=== PATIENT | female | born 1960 | race African-American/Black ===

== ENCOUNTER 2017-08-07 05:56 | Observation (INO) | payer BC ==
[~2017-08-07] VITALS: Ht 157.5 cm; Wt 105.0 kg
[2017-08-07] VITALS (9 sets, daily range): BP systolic 108–141; BP diastolic 58–92; PULSE 60–72; RESP 17–18; TEMP 97.8–98.4; O2SAT 96–98
[2017-08-07] MEDS ORDERED: NITROGLYCERIN 0.4 MG SL 25 TABS/BTL SL ONE (06:15)
[2017-08-07] MEDS ORDERED: ASPIRIN 81 MG CHEW TAB PO ONE (06:15)
[2017-08-07] MEDS ORDERED: SODIUM CHLORIDE 0.9% FLUSH 10 ML FLUSH IVF PRN (06:15)
--- NOTE | 2017-08-07 06:16 | PD ---
HPI Chief Complaint: Chest Pain Time Seen by Provider: 06:04 Travel History International Travel<30 days: No Contact w/Intl Traveler<30days: No Traveled to known affect area: No History of Present Illness HPI The patient is a 57 year old female who presents to the [facility] emergency department with a history of flulike symptoms that began on Saturday. She had a cough, body aches, and a subjective fever. This morning she awoke with chest pain, that radiated between her shoulders. She had associated shortness of breath. The pain is a pressure sensation. It comes comes and goes. Laying still improves the pain. She denies ever having chest pain like this previously. The patient does have a history of hypertension, hyperlipidemia, and peripheral lower extremity edema. She denies any prior history of NH, DVT, PE or congestive heart failure. The patient reports that she is on hydrochlorothiazide for her blood pressure. She reports that her swelling in her legs became worse over the last 24 hours due to dietary indiscretions. She reports that she had salt yesterday which usually worsens the edema. Otherwise on review of systems, the patient denies having any sore throat, rhinorrhea or nasal congestion, nausea, vomiting, or diarrhea. The patient denies having any abdominal pain, urinary symptoms, or neurologic symptoms. PFSH Past Medical History Narrative Medical The patient's past medical history is significant for degenerative disc disease , hypertension, hyperlipidemia, right shoulder arthritis, leg edema. High Cholesterol: Yes Hypertension: Yes Medical other: Yes (RLS) Influenza Vaccination: No Past Surgical History Narrative Surgical The patient's past surgical history is significant for abdominal hernia repair Other Surgery: Yes (hernia surgery with mesh 11/2016) Social History Alcohol Use: No Tobacco Use: No Substance Use: No Allergies-Medications (Allergen,Severity, Reaction): Coded Allergies: ibuprofen (Verified Allergy, Unknown, BLEEDING, 08/07/17) Reported Meds & Prescriptions Reported Meds & Active Scripts Active Reported Tizanidine (Tizanidine HCl) 4 Mg Tab 4 Mg PO Q6HR D3 Maximum Strength (Cholecalciferol) 5,000 Unit Cap 1,000 Units PO DAILY Tylenol (Acetaminophen) 325 Mg Tab 500 Mg PO Q4H PRN Hydrochlorothiazide 12.5 Mg Cap 12.5 Mg PO DAILY Meloxicam 15 Mg Tab 15 Mg PO DAILY Potassium Chloride ER (Potassium Chloride) 20 Meq Tab 20 Meq PO BID B12 (Cyanocobalamin) 1,000 Mcg Tab 500 Gabapentin 100 Mg Cap 100 Mg PO TID Review of Systems Except as stated in HPI: all other systems reviewed are Neg General / Constitutional: Positive: Fever Eyes: No: Visual changes HENT: No: Headaches, Sore Throat, Rhinitis, Rhinorrhea, Congestion Cardiovascular: Positive: Chest Pain or Discomfort, Dyspnea on exertion Respiratory: Positive: Cough (white mucus), Shortness of Breath Gastrointestinal: No: Nausea, Vomiting, Diarrhea, Abdominal Pain Genitourinary: No: Dysuria Musculoskeletal: Positive: Myalgias, No: Pain Skin: No Rash Neurologic: No: Weakness, Focal Abnormalities, Change in Mentation, Slurred Speech, Sensory Disturbance Psychiatric: No: Depression Endocrine: No: Polydipsia Hematologic/Lymphatic: No: Easy Bruising Physical Exam Narrative General: The patient is a well-developed well-nourished female in no acute distress. Head and Neck exam: Head is normocephalic atraumatic. Eyes: EOMI, pupils are equal round and reactive to light. Nose: Midline septum with pink mucous membranes Mouth: Dentition unremarkable. Moist mucus membranes. Posterior oropharynx is not erythematous. No tonsillar hypertrophy. Uvula midline. Airway patent. Neck: No palpable lymphadenopathy. No nuchal rigidity. No thyromegaly. Cardiovascular: Regular rate and rhythm without murmurs, gallops, or rubs. Lungs: Decreased breath sounds in bilateral lung bases, no wheezes, rhonchi, or crackles are audible. Abdomen: Soft, without tenderness to palpation in all 4 quadrants of the abdomen. No guarding, rebound, or rigidity. Normal bowel sounds are audible. No tenderness on palpation of McBurney's point. Extremities: No clubbing or cyanosis. The patient has 1+ pitting edema bilateral lower extremities. 2+ pulses in all 4 extremities. No calf tenderness on palpation. Back: No spinous process tenderness to palpation. No costovertebral angle tenderness to palpation. On examination of the upper back between her shoulder blades the patient has muscle tenderness on palpation. No spinous process step-off or crepitus. No erythema or ecchymosis. Neurologic Exam: Grossly nonfocal. Skin Exam: No rash noted. Intact skin that is warm and dry. Data Data Last Documented VS Vital Signs Date Time Temp Pulse Resp B/P (MAP) Pulse Ox O2 Delivery O2 Flow Rate FiO2 08/07/17 07:05 97.8 62 17 108/58 (75) 96 Room Air Orders Orders Electrocardiogram (08/07/17 06:14) B-Type Natriuretic Peptide (08/07/17 06:14) Ckmb (Isoenzyme) Profile (08/07/17 06:14) Complete Blood Count With Diff (08/07/17 06:14) Comprehensive Metabolic Panel (08/07/17 06:14) D-Dimer (08/07/17 06:14) Magnesium (Mg) (08/07/17 06:14) Prothrombin Time / Inr (Pt) (08/07/17 06:14) Act Partial Throm Time (Ptt) (08/07/17 06:14) Troponin I (08/07/17 06:14) Lipase (08/07/17 06:14) Chest, Single Ap (08/07/17 06:14) Ecg Monitoring (08/07/17 06:14) Bilateral Bp Monitoring (08/07/17 06:14) Iv Access Insert/Monitor (08/07/17 06:14) Oximetry (08/07/17 06:14) Oxygen Administration (08/07/17 06:14) Aspirin Chew (Aspirin Chew) (08/07/17 06:15) Sodium Chloride 0.9% Flush (Ns Flush) (08/07/17 06:15) Nitroglycerin Sl (Nitrostat Sl) (08/07/17 06:15) Influenzae A/B Antigen (08/07/17 06:56) Ct Pulmonary Angiogram (08/07/17 07:09) Labs Laboratory Tests Test 08/07/17 06:10 White Blood Count 4.2 TH/MM3 Red Blood Count 4.07 MIL/MM3 Hemoglobin 11.0 GM/DL Hematocrit 32.9 % Mean Corpuscular Volume 80.9 FL Mean Corpuscular Hemoglobin 27.0 PG Mean Corpuscular Hemoglobin Concent 33.4 % Red Cell Distribution Width 14.4 % Platelet Count 345 TH/MM3 Mean Platelet Volume 7.3 FL Neutrophils (%) (Auto) 33.5 % Lymphocytes (%) (Auto) 44.5 % Monocytes (%) (Auto) 13.1 % Eosinophils (%) (Auto) 7.8 % Basophils (%) (Auto) 1.1 % Neutrophils # (Auto) 1.4 TH/MM3 Lymphocytes # (Auto) 1.9 TH/MM3 Monocytes # (Auto) 0.6 TH/MM3 Eosinophils # (Auto) 0.3 TH/MM3 Basophils # (Auto) 0.0 TH/MM3 CBC Comment DIFF FINAL Differential Comment Prothrombin Time 10.9 SEC Prothromb Time International Ratio 1.1 RATIO Activated Partial Thromboplast Time 28.8 SEC D-Dimer Quantitative (PE/DVT) 0.57 MG/L FEU Blood Urea Nitrogen 20 MG/DL Creatinine 0.90 MG/DL Random Glucose 92 MG/DL Total Protein 8.4 GM/DL Albumin 3.4 GM/DL Calcium Level 8.6 MG/DL Magnesium Level 2.2 MG/DL Alkaline Phosphatase 71 U/L Aspartate Amino Transf (AST/SGOT) 15 U/L Alanine Aminotransferase (ALT/SGPT) 21 U/L Total Bilirubin 0.3 MG/DL Sodium Level 138 MEQ/L Potassium Level 3.5 MEQ/L Chloride Level 102 MEQ/L Carbon Dioxide Level 27.6 MEQ/L Anion Gap 8 MEQ/L Estimat Glomerular Filtration Rate 78 ML/MIN Total Creatine Kinase 85 U/L Troponin I LESS THAN 0.02 NG/ML B-Type Natriuretic Peptide 2 PG/ML Lipase 63 U/L MDM Medical Decision Making Medical Screen Exam Complete: Yes Emergency Medical Condition: Yes Medical Record Reviewed: Yes Differential Diagnosis Influenza, versus pneumonia, versus acute coronary syndrome, versus new-onset congestive heart failure, versus pulmonary embolism Narrative Course During the course of the patients emergency department visit, the patients history, examination, and differential diagnosis were reviewed with the patient. The patient was placed on a seat builder with oximetry and frequent blood pressure monitoring. The patient had IV access obtained and blood work sent for analysis. An EKG was done on arrival. The patient's EKG shows a sinus rhythm with occasional supraventricular premature complexes, no other acute ST segment changes, T waves are inverted in V1, V2. The patient was initially provided aspirin 324 mg by mouth 1, subungual nitroglycerin 1, nitroglycerin 1 inch to the chest wall. The patients laboratory studies were reviewed and remarkable for white count of 4.2, hemoglobin 11, platelets 345, lymphocytes 44.5, monocytes 13.1. CMP is remarkable for a BUN of 20, GFR 78, cardiac enzymes within normal limits, BNP is 2, lipase 63, PT PTT within normal limits, d-dimer 0.57, therefore CTA to rule out PE was ordered. Radiology studies were reviewed and remarkable for a chest x-ray that shows cardiac enlargement, no acute pulmonary abnormality identified. Influenza testing and CTA of the chest are pending at the conclusion of my shift. The patient's case was checked out to the oncoming emergency physician to disposition the patient based on the conclusion of her workup. Diagnosis Primary Impression: Chest pain Qualified Codes: R07.2 - Precordial pain Zuleika Milton MD Aug 07, 2017 06:16
--- NOTE | 2017-08-07 06:33 | RADRPT ---
EXAM DATE/TIME: 08/07/2017 06:19 [facility] COMPARISON: No previous studies available for comparison. INDICATIONS : Chest pain. MEDICAL HISTORY : Hypertension. Hypercholesterolemia. SURGICAL HISTORY : None. ENCOUNTER: Initial ACUITY: 1 day PAIN SCORE: Non-responsive. LOCATION: Bilateral chest FINDINGS: Portable AP view of the chest demonstrates enlargement of the cardiac silhouette. No pleural effusion , airspace consolidation, or pneumothorax is identified. The bones and soft tissues demonstrate no ab normality. CONCLUSION: Enlargement of the cardiac silhouette. No acute pulmonary abnormality is identified. Mukund Toscano MD on August 07, 2017 at 6:32 Board Certified Radiologist. This report was verified electronically.
[2017-08-07 06:40] LABS: AUTOMATED NEUTROPHIL # 1.4 TH/MM3 (1.8-7.7); BASOPHIL % 1.1 % (0.0-2.0); EOSINOPHIL # 0.3 TH/MM3 (0-0.4); EOSINOPHIL % 7.8 % (0.0-4.0); HEMATOCRIT 32.9 % (35.0-46.0); LYMPH % 44.5 % (9.0-44.0); LYMPHOCYTE # 1.9 TH/MM3 (1.0-4.8); MEAN CELL VOLUME 80.9 FL (80.0-100.0); MEAN CORPUSCULAR HGB CONC 33.4 % (32.0-36.0); MEAN PLATELET VOLUME 7.3 FL (7.0-11.0); MONO % 13.1 % (0.0-8.0); MONOCYTE # 0.6 TH/MM3 (0-0.9); NEUT % 33.5 % (16.0-70.0); PLATELET COUNT 345 TH/MM3 (150-450); RED BLOOD COUNT 4.07 MIL/MM3 (4.00-5.30); RED CELL DISTRIBUTION WIDTH 14.4 % (11.6-17.2); WHITE BLOOD COUNT 4.2 TH/MM3 (4.0-11.0)
[2017-08-07] MEDS ORDERED: GABA100C4 PO (06:40)
[2017-08-07] MEDS ORDERED: CYAN1TAB24 (06:40)
[2017-08-07] MEDS ORDERED: HYDR12.57 PO (06:40)
[2017-08-07] MEDS ORDERED: TYLE325T PO (06:40)
[2017-08-07] MEDS ORDERED: MELO15TA20 PO (06:40)
[2017-08-07] MEDS ORDERED: POTA-163 PO (06:40)
[2017-08-07] MEDS ORDERED: D 50CAP2 PO (06:41)
[2017-08-07] MEDS ORDERED: TIZA4TAB PO (06:44)
[2017-08-07 06:57] LABS: ALBUMIN 3.4 GM/DL (3.4-5.0); ALT (GPT) 21 U/L (10-53); AST (GOT) 15 U/L (15-37); BICARBONATE 27.6 MEQ/L (21.0-32.0); BLOOD UREA NITROGEN 20 MG/DL (7-18); CALCIUM 8.6 MG/DL (8.5-10.1); CHLORIDE 102 MEQ/L (98-107); GLOMERULAR FILTRATION RATE 78 ML/MIN (>89); GLUCOSE,RANDOM 92 MG/DL (74-106); MAGNESIUM 2.2 MG/DL (1.5-2.5); SODIUM (NA) 138 MEQ/L (136-145)
[2017-08-07 07:01] LABS: ALKALINE PHOSPHATASE 71 U/L (45-117); TOTAL BILIRUBIN ADULT 0.3 MG/DL (0.2-1.0); TOTAL PROTEIN 8.4 GM/DL (6.4-8.2); TROPONIN I LESS THAN 0.02 NG/ML (0.02-0.05)
[2017-08-07 07:02] LABS: INTERNATIONAL NORMALIZED RATIO 1.1 RATIO; PROTHROMBIN TIME - PATIENT 10.9 SEC (9.8-11.6)
[2017-08-07 07:03] LABS: D-DIMER 0.57 MG/L FEU (0.00-0.50)
[2017-08-07] MEDS ORDERED: IOHEXOL 350 MG/ML 10 ML VIAL (for RAD DIAG) IVCONTRAST ONE (08:22)
--- NOTE | 2017-08-07 08:34 | RADRPT ---
EXAM DATE/TIME: 08/07/2017 08:10 [facility] COMPARISON: No previous studies available for comparison. INDICATIONS : Shortness of breath. IV CONTRAST: 72 cc Omnipaque 350 (iohexol) IV RADIATION DOSE: 20.59 CTDIvol (mGy) MEDICAL HISTORY : Hypertension. SURGICAL HISTORY : None. ENCOUNTER: Initial ACUITY: 1 day PAIN SCALE: 0/10 LOCATION: chest TECHNIQUE: Volumetric scanning of the chest was performed using a pulmonary embolism protocol MIP images were re constructed. Using automated exposure control and adjustment of the mA and/or kV according to patien t size, radiation dose was kept as low as reasonably achievable to obtain optimal diagnostic quality images. DICOM format image data is available electronically for review and comparison. Follow-up recommendations for detected pulmonary nodules are based at a minimum on nodule size and pa tient risk factors according to Fleischner Society Guidelines. FINDINGS: PULMONARY ARTERIES: No filling defects are seen in the pulmonary arteries through the segmental level. LUNGS: There is no consolidation or pneumothorax . Focal bullous changes noted within the left apex. Mild f ibrotic scarring is noted within the lung bases. No concerning pulmonary nodule is visualized. PLEURAE: There is no pleural thickening or pleural effusion. MEDIASTINUM: The heart is significantly enlarged. Tiny pericardial effusion is noted. Scattered mildly prominent p revascular, AP window, precarinal and subcarinal mediastinal lymph nodes are noted and are nonspecifi c. MUSCULOSKELETAL: Mild degenerative changes and scoliosis of the thoracic spine are noted. MISCELLANEOUS: The visualized upper abdominal organs demonstrate no acute abnormality. CONCLUSION: 1. No evidence of pulmonary embolism. 2. Marked cardiomegaly and tiny pericardial effusion. 3. Minimally prominent mediastinal lymph nodes which are nonspecific. 4. Bullous change within the left apex. 5. Minimal bibasilar fibrotic scarring. 6. Mild degenerative changes and scoliosis of the thoracic spine. Joaquin Puente MD on August 07, 2017 at 8:26 Board Certified Radiologist. This report was verified electronically.
[2017-08-07] MEDS ORDERED: ONDANSETRON HCL 4 MG/2 ML VIAL IV PUSH PRN (10:00)
[2017-08-07] MEDS ORDERED: ACETAMINOPHEN/HYDROcodone 325 MG/7.5 MG TAB PO PRN (10:00)
[2017-08-07] MEDS ORDERED: ACETAMINOPHEN 500 MG CPLT PO PRN (10:00)
[2017-08-07] MEDS ORDERED: ALPRAZolam 0.25 MG TAB PO PRN (10:00)
[2017-08-07] MEDS: PANTOPRAZOLE SOD 40 MG DELAYED RELEASE TAB PO SCH (10:00)
--- NOTE | 2017-08-07 10:10 | HHI.HP ---
HPI Primary Care Physician Unknown Chief Complaint Chest pain History of Present Illness This is a 57-year-old female with history of hypertension and hyperlipidemia that presents to ED complaining of chest pain and shortness of breath. Patient states she was awoken at 5:00 this morning with chest pain and shortness of breath. There is in the center of her chest. It then radiated into the back and then down both arms. It lasted 2 or 3 minutes. She still feels a little short of breath. States she has had cold symptoms recently. Has had a nonproductive cough. Subjective fevers. There have been sick contacts. Denies any recent weight gain. She believes her legs may be a little more swollen than usual. She has chronic edema in her legs and takes a diuretic for that as well as blood pressure. However she states she ate food of the last few days it was high and sodium which he usually avoids. Denies calf pain. Denies history of CAD. She cannot recall prior cardiac workup. Review of Systems General: Complaint of subjective fever. Patient denies recent travel. HEENT: Patient denies headache, sore throat, difficulty swallowing. Cardiovascular: Has the chest discomfort as mentioned above. Denies sensation of heart beating rapidly or irregularly. No syncope. Respiratory: Complains of shortness of breath. She has had nonproductive cough. Denies inspirational chest discomfort. Denies wheezing or hemoptysis. GI: Patient denies nausea, vomiting, diarrhea, abdominal pain, bloody stools. Musculoskeletal: Patient denies joint pain or edema. Denies calf pain. Has chronic swelling in her legs and thought it was a little worse yesterday but this morning she states they look normal to her. Neurovascular: Patient denies numbness, tingling, weakness in extremities. Denies headache. Endocrine: Denies polyuria and polydipsia. Hematologic: Denies easy bruising. Skin: Denies rash or itching. Past Family Social History Allergies: Coded Allergies: ibuprofen (Verified Allergy, Unknown, BLEEDING, 08/07/17) Past Medical History Hypertension, hyperlipidemia, chronic leg pains. Denies diabetes and known CAD. Past Surgical History Hernia repair. Reported Medications Reported Meds & Active Scripts Active Reported Tizanidine (Tizanidine HCl) 4 Mg Tab 4 Mg PO Q6HR D3 Maximum Strength (Cholecalciferol) 5,000 Unit Cap 1,000 Units PO DAILY Tylenol (Acetaminophen) 325 Mg Tab 500 Mg PO Q4H PRN Hydrochlorothiazide 12.5 Mg Cap 12.5 Mg PO DAILY Meloxicam 15 Mg Tab 15 Mg PO DAILY Potassium Chloride ER (Potassium Chloride) 20 Meq Tab 20 Meq PO BID B12 (Cyanocobalamin) 1,000 Mcg Tab 500 Gabapentin 100 Mg Cap 100 Mg PO TID Active Ordered Medications Current Medications Medications (Trade) Dose Ordered Sig/Keena Route Start Time Stop Time Status Last Admin (NS Flush) 2 ml UNSCH PRN IVF 08/07/17 06:15 08/07/17 06:36 (Tylenol) 500 mg Q4H PRN PO 08/07/17 10:00 UNV ([place] 7.5-325 Mg) 1 tab Q4H PRN PO 08/07/17 10:00 UNV (Zofran Inj) 4 mg Q6H PRN IV PUSH 08/07/17 10:00 UNV (Protonix) 40 mg DAILY PO 08/07/17 10:00 UNV (Xanax) 0.25 mg Q8H PRN PO 08/07/17 10:00 UNV Family History Denies family history of CAD. Social History Non-smoker. Denies alcohol or illicit drugs. Physical Exam Vital Signs Vital Signs Date Time Temp Pulse Resp B/P (MAP) Pulse Ox O2 Delivery O2 Flow Rate FiO2 08/07/17 09:46 97.9 63 18 112/68 (83) 98 Room Air 08/07/17 07:05 97.8 62 17 108/58 (75) 96 Room Air 08/07/17 07:05 17 96 Room Air 08/07/17 07:05 62 17 96 Room Air 08/07/17 07:05 96 Room Air 08/07/17 07:00 17 08/07/17 06:35 112/69 (83) 08/07/17 05:58 98.4 72 18 108/69 (82) 97 Room Air Physical Exam GENERAL: This is a well-nourished, well-developed patient, in no apparent distress. She is obese at 105 kg. Patient speaks in clear complete sentences. Patient is pleasant. HEENT: Head is atraumatic and normocephalic. Neck is supple without lymphadenopathy and trachea is midline. No JVD or carotid bruits. CARDIOVASCULAR: Regular rate and rhythm without murmurs, gallops, or rubs. RESPIRATORY: Clear to auscultation. Breath sounds equal bilaterally. No wheezes , rales, or rhonchi. Chest wall is nontender. No use of accessory muscles. GASTROINTESTINAL: Abdomen is nontender, nondistended. Abdomen soft. No obvious pulsatile mass or bruit. No CVA tenderness. Strong femoral pulses bilaterally. Normal bowel sounds in all quadrants. MUSCULOSKELETAL: Patient is moving upper and lower extremities freely. No calf tenderness or edema, no Homans sign. Strong pulses in upper and lower extremities. NEUROLOGICAL: Patient is alert and oriented. Cranial nerves 2-12 are grossly intact. No focal deficits and speech is clear. SKIN: No rash and turgor is normal. Laboratory Laboratory Tests Test 08/07/17 06:10 White Blood Count 4.2 Red Blood Count 4.07 Hemoglobin 11.0 Hematocrit 32.9 Mean Corpuscular Volume 80.9 Mean Corpuscular Hemoglobin 27.0 Mean Corpuscular Hemoglobin Concent 33.4 Red Cell Distribution Width 14.4 Platelet Count 345 Mean Platelet Volume 7.3 Neutrophils (%) (Auto) 33.5 Lymphocytes (%) (Auto) 44.5 Monocytes (%) (Auto) 13.1 Eosinophils (%) (Auto) 7.8 Basophils (%) (Auto) 1.1 Neutrophils # (Auto) 1.4 Lymphocytes # (Auto) 1.9 Monocytes # (Auto) 0.6 Eosinophils # (Auto) 0.3 Basophils # (Auto) 0.0 CBC Comment DIFF FINAL Differential Comment Prothrombin Time 10.9 Prothromb Time International Ratio 1.1 Activated Partial Thromboplast Time 28.8 D-Dimer Quantitative (PE/DVT) 0.57 Blood Urea Nitrogen 20 Creatinine 0.90 Random Glucose 92 Total Protein 8.4 Albumin 3.4 Calcium Level 8.6 Magnesium Level 2.2 Alkaline Phosphatase 71 Aspartate Amino Transf (AST/SGOT) 15 Alanine Aminotransferase (ALT/SGPT) 21 Total Bilirubin 0.3 Sodium Level 138 Potassium Level 3.5 Chloride Level 102 Carbon Dioxide Level 27.6 Anion Gap 8 Estimat Glomerular Filtration Rate 78 Total Creatine Kinase 85 Troponin I LESS THAN 0.02 B-Type Natriuretic Peptide 2 Lipase 63 Date/Time Source Procedure Growth Status 08/07/17 07:30 Nasal Aspirate Influenza Types A,B Antigen ([facility]ATASHA) - Final NEGATIVE FOR FLU A AND B ANTIGEN.... Complete Result Diagram: 08/07/1760908/07/17609 Imaging Last [address] Angiography 08/07/17708 Signed Impressions: Service Date/Time: Monday, August 07, 2017 08:10 - CONCLUSION: 1. No evidence of pulmonary embolism. 2. Marked cardiomegaly and tiny pericardial effusion. 3. Minimally prominent mediastinal lymph nodes which are nonspecific. 4. Bullous change within the left apex. 5. Minimal bibasilar fibrotic scarring. 6. Mild degenerative changes and scoliosis of the thoracic spine. Joaquin Puente MD Chest X-Ray 08/07/17613 Signed Impressions: Service Date/Time: Monday, August 07, 2017 06:19 - CONCLUSION: Enlargement of the cardiac silhouette. No acute pulmonary abnormality is identified. Mukund Toscano MD Course EKG is sinus rhythm with no significant ST segment depressions or elevations. Her PACs. Caprini VTE Risk Assessment Caprini VTE Risk Assessment: No/Low Risk (score <= 1) Caprini Risk Assessment Model Point Value = 1 Point Value = 2 Point Value = 3 Point Value = 5 Age 41-60 Minor surgery BMI > 25 kg/m2 Swollen legs Varicose veins or History of unexplained or recurrent spontaneous Oral contraceptives or hormone replacement Sepsis (< 1 month) Serious lung disease, including pneumonia (< 1 month) Abnormal pulmonary function Acute myocardial infarction Congestive heart failure (< 1 month) History of inflammatory bowel disease Medical patient at bed rest Age 61-74 Arthroscopic surgery Major open surgery (> 45 min) Laparoscopic surgery (> 45 min) Malignancy Confined to bed (> 72 hours) Immobilizing plaster cast Central venous access Age >= 75 History of VTE Family history of VTE Factor V Leiden Prothrombin [id number] Lupus anticoagulant Anticardiolipin antibodies Elevated serum homocysteine Heparin-induced thrombocytopenia Other congenital or acquired thrombophilia Stroke (< 1 month) Elective arthroplasty Hip, pelvis, or leg fracture Acute spinal cord injury (< 1 month) Prophylaxis Regimen Total Risk Factor Score Risk Level Prophylaxis Regimen 0-1 Low Early ambulation 2 Moderate Order ONE of the following: *Sequential Compression Device (SCD) *Heparin 5000 units SQ BID 3-4 Higher Order ONE of the following medications: *Heparin 5000 units SQ TID *Enoxaparin/Lovenox 40 mg SQ daily (WT < 150 kg, CrCl > 30 mL/min) *Enoxaparin/Lovenox 30 mg SQ daily (WT < 150 kg, CrCl > 10-29 mL/min) *Enoxaparin/Lovenox 30 mg SQ BID (WT < 150 kg, CrCl > 30 mL/min) AND/OR *Sequential Compression Device (SCD) 5 or more Highest Order ONE of the following medications: *Heparin 5000 units SQ TID (Preferred with Epidurals) *Enoxaparin/Lovenox 40 mg SQ daily (WT < 150 kg, CrCl > 30 mL/min) *Enoxaparin/Lovenox 30 mg SQ daily (WT < 150 kg, CrCl > 10-29 mL/min) *Enoxaparin/Lovenox 30 mg SQ BID (WT < 150 kg, CrCl > 30 mL/min) AND *Sequential Compression Device (SCD) Assessment and Plan Assessment and Plan * Chest pain: Patient had first troponin and was evaluated by Dr. Soriano of cardiology of the chest pain center. At this time we will be getting a 2D echo and Lexiscan. Further plan/disposition will be pending the results of these 2 studies. * Cardiomegaly: We will get a 2D echo. * Hypertension: Continue current medication. * Hyperlipidemia: Patient states she is not on medication for this at this time. She should discuss this with her PCP. Patient is stable at this time. She is agreeable to this plan. Adán Danielle Aug 07, 2017 10:10
[2017-08-07] MEDS: POTASSIUM CHLORIDE 20 MEQ CONTROLLED RELEASE TAB PO SCH ×2 (10:15→20:09)
[2017-08-07] MEDS: HYDROCHLOROTHIAZIDE 12.5 MG CAP PO SCH (10:15)
--- NOTE | 2017-08-07 10:56 | EKG ---
Date Performed: 08/07/2017 Time Performed: 06:06:34 PTAGE: 57 years EKG: Sinus rhythm WITH OCCASIONAL SUPRAVENTRICULAR PREMATURE COMPLEXES BORDERLINE ECG NO PREVIOUS TRACING DOCTOR: Negro Nesbitt Interpretating Date/Time 08/07/2017 10:53:09
[2017-08-07] MEDS: GABAPENTIN 100 MG CAP PO SCH ×2 (13:00→17:37)
[2017-08-07] MEDS ORDERED: REGADENOSON INJ 0.4 MG/5 ML SYR ONE (14:21)
--- NOTE | 2017-08-07 15:54 | RADRPT ---
EXAM DATE/TIME: 08/07/2017 13:58 [facility] COMPARISON: No previous studies available for comparison. INDICATIONS : Substernal chest pain with dyspnea radiating to back and bilateral arms. Angina. DOSE: 35.0 mCi Tc99m Myoview at stress. 11.0 mCi Tc99m Myoview at rest. 0.4 mg Lexiscan STRESS SYMPTOMS: Stomach cramps and nausea. EJECTION FRACTION: 49% MEDICAL HISTORY : Hypertension. Diabetes mellitus type 2. SURGICAL HISTORY : Hernia repair. ENCOUNTER: Initial ACUITY: 1 day PAIN SCALE: 6/10 LOCATION: Substernal chest TECHNIQUE: The patient underwent pharmacologic stress with infusion of prescribed dose. Continuous ECG tracing was monitored during stress. Gated SPECT imaging was performed after stress and conventional SPECT i maging was performed at rest. The examination was performed on a SPECT/CT scanner, both attenuation and non-corrected datasets were reviewed. FINDINGS: DISTRIBUTION: The maximum perfused segment at stress is in the anterolateral wall. PERFUSION STUDY: Mildly diminished apical perfusion without evidence of redistribution GATED STUDY: Borderline EF and LV chamber volume. There is intact wall motion and thickening without hypokinetic o r dyskinetic segments. CONCLUSION: Mild severity fixed apical perfusion abnormality. Borderline ejection fraction RISK CATEGORY: Intermediate (1-3% Annual Mortality Rate) Mukund Og MD on August 07, 2017 at 15:47 Board Certified Radiologist. This report was verified electronically.
[2017-08-07] MEDS ORDERED: cloNIDine HCL 0.1 MG TAB PO PRN (16:45)
[2017-08-07] MEDS: ACETAMINOPHEN/HYDROcodone 325 MG/7.5 MG TAB PO PRN (17:38)
--- NOTE | 2017-08-07 19:10 | ECHRPT ---
Indication: CHEST PAIN CONCLUSIONS The left ventricular systolic function is normal with an estimated ejection fraction in the range of 55-60%. [id number] mitral valve regurgitation. Trace aortic valve regurgitation. There is mild tricuspid valve regurgitation. Trivial pulmonary valve regurgitation. BP: / HR: Rhythm: MEASUREMENTS (Male / Female) Normal Values Technical Quality: 2D ECHO LV Diastolic Diameter PLAX 5.6 cm 4.2 - 5.9 / 3.9 - 5.3 cm LV Systolic Diameter PLAX 4.0 cm IVS Diastolic Thickness 1.1 cm 0.6 - 1.0 / 0.6 - 0.9 cm LVPW Diastolic Thickness 1.1 cm 0.6 - 1.0 / 0.6 - 0.9 cm LV Relative Wall Thickness 0.4 RV Internal Dim ED PLAX 2.1 cm LVOT Diameter 2.2 cm LA Systolic Diameter LX 2.6 cm 3.0 - 4.0 / 2.7 - 3.8 cm LV Ejection Fraction MOD 4C 62.0 % LV Ejection Fraction 4C AL 63.8 % M-MODE Aortic Root Diameter MM 3.0 cm LA Systolic Diameter MM 2.6 cm LA Ao Ratio MM 0.9 AV Cusp Separation MM 2.0 cm DOPPLER AV Peak Velocity 117.0 cm/s AV Peak Gradient 5.5 mmHg LVOT Peak Velocity 89.8 cm/s LVOT Peak Gradient 3.2 mmHg AV Area Cont Eq pk 2.9 cm MV Area PHT 4.1 cm Mitral E Point Velocity 68.6 cm/s Mitral A Point Velocity 61.7 cm/s Mitral E to A Ratio 1.1 LV E' Lateral Velocity 10.4 cm/s Mitral E to LV E' Lateral Ratio 6.6 LV E' Septal Velocity 6.3 cm/s Mitral E to LV E' Septal Ratio 10.8 TR Peak Velocity 297.0 cm/s TR Peak Gradient 35.3 mmHg Right Atrial Pressure 10.0 mmHg Pulmonary Artery Systolic Pressu 45.3 mmHg Right Ventricular Systolic Press 45.3 mmHg PV Peak Velocity 97.7 cm/s PV Peak Gradient 3.8 mmHg FINDINGS LEFT VENTRICLE The left ventricular systolic function is normal with an estimated ejection fraction in the range of 55-60%. Normal left ventricular size. Wall thickness is normal. RIGHT VENTRICLE Normal right ventricular size and systolic function. LEFT ATRIUM The left atrial size is normal. RIGHT ATRIUM The right atrial size is normal. ATRIAL SEPTUM Normal atrial septal thickness. AORTA The aortic root and proximal ascending aorta are normal in size on limited imaging. MITRAL VALVE Structurally normal mitral valve. [id number] mitral valve regurgitation. AORTIC VALVE Trileaflet aortic valve. Aortic valve sclerosis is present. Trace aortic valve regurgitation. TRICUSPID VALVE Structurally normal tricuspid valve. There is mild tricuspid valve regurgitation. The estimated pulmonary arterial pressure is 45.3 mmHg. PULMONARY VALVE Trivial pulmonary valve regurgitation. VESSELS The inferior vena cava is normal in size. PERICARDIUM No pericardial effusion. Audi Soares DO (Electronically Signed) Final Date:07 August 2017 19:08
--- NOTE | 2017-08-07 19:29 | PD ---
Physical Exam Narrative Patient signed out to me by Dr. Milton. Please see her documentation for complete details. Briefly, patient is a 57-year-old female who comes in complaining of chest pain and shortness of breath. Exam shows heart to be regular in rate and rhythm. Lungs are clear to auscultation. Data Data Last Documented VS Vital Signs Date Time Temp Pulse Resp B/P (MAP) Pulse Ox O2 Delivery O2 Flow Rate FiO2 08/07/17 07:05 97.8 62 17 108/58 (75) 96 Room Air Orders Orders Electrocardiogram (08/07/17 06:14) B-Type Natriuretic Peptide (08/07/17 06:14) Ckmb (Isoenzyme) Profile (08/07/17 06:14) Complete Blood Count With Diff (08/07/17 06:14) Comprehensive Metabolic Panel (08/07/17 06:14) D-Dimer (08/07/17 06:14) Magnesium (Mg) (08/07/17 06:14) Prothrombin Time / Inr (Pt) (08/07/17 06:14) Act Partial Throm Time (Ptt) (08/07/17 06:14) Troponin I (08/07/17 06:14) Lipase (08/07/17 06:14) Chest, Single Ap (08/07/17 06:14) Ecg Monitoring (08/07/17 06:14) Bilateral Bp Monitoring (08/07/17 06:14) Iv Access Insert/Monitor (08/07/17 06:14) Oximetry (08/07/17 06:14) Oxygen Administration (08/07/17 06:14) Aspirin Chew (Aspirin Chew) (08/07/17 06:15) Sodium Chloride 0.9% Flush (Ns Flush) (08/07/17 06:15) Nitroglycerin Sl (Nitrostat Sl) (08/07/17 06:15) Influenzae A/B Antigen (08/07/17 06:56) Ct Pulmonary Angiogram (08/07/17 07:09) Iohexol 350 Inj (Omnipaque 350 Inj) (08/07/17 08:22) Admit Order (Ed Use Only) (08/07/17 ) Labs Laboratory Tests Test 08/07/17 06:10 White Blood Count 4.2 TH/MM3 Red Blood Count 4.07 MIL/MM3 Hemoglobin 11.0 GM/DL Hematocrit 32.9 % Mean Corpuscular Volume 80.9 FL Mean Corpuscular Hemoglobin 27.0 PG Mean Corpuscular Hemoglobin Concent 33.4 % Red Cell Distribution Width 14.4 % Platelet Count 345 TH/MM3 Mean Platelet Volume 7.3 FL Neutrophils (%) (Auto) 33.5 % Lymphocytes (%) (Auto) 44.5 % Monocytes (%) (Auto) 13.1 % Eosinophils (%) (Auto) 7.8 % Basophils (%) (Auto) 1.1 % Neutrophils # (Auto) 1.4 TH/MM3 Lymphocytes # (Auto) 1.9 TH/MM3 Monocytes # (Auto) 0.6 TH/MM3 Eosinophils # (Auto) 0.3 TH/MM3 Basophils # (Auto) 0.0 TH/MM3 CBC Comment DIFF FINAL Differential Comment Prothrombin Time 10.9 SEC Prothromb Time International Ratio 1.1 RATIO Activated Partial Thromboplast Time 28.8 SEC D-Dimer Quantitative (PE/DVT) 0.57 MG/L FEU Blood Urea Nitrogen 20 MG/DL Creatinine 0.90 MG/DL Random Glucose 92 MG/DL Total Protein 8.4 GM/DL Albumin 3.4 GM/DL Calcium Level 8.6 MG/DL Magnesium Level 2.2 MG/DL Alkaline Phosphatase 71 U/L Aspartate Amino Transf (AST/SGOT) 15 U/L Alanine Aminotransferase (ALT/SGPT) 21 U/L Total Bilirubin 0.3 MG/DL Sodium Level 138 MEQ/L Potassium Level 3.5 MEQ/L Chloride Level 102 MEQ/L Carbon Dioxide Level 27.6 MEQ/L Anion Gap 8 MEQ/L Estimat Glomerular Filtration Rate 78 ML/MIN Total Creatine Kinase 85 U/L Troponin I LESS THAN 0.02 NG/ML B-Type Natriuretic Peptide 2 PG/ML Lipase 63 U/L [facility] Supervised Visit with YAHAIRA: No Narrative Course CT of the chest was negative. First troponin is negative. Patient received aspirin. Should be placed in chest pain center for further management. Diagnosis Primary Impression: Chest pain Qualified Codes: R07.2 - Precordial pain Admitting Information Admitting Physician Requests: Observation Richelle Cintron MD Aug 07, 2017 19:29
[2017-08-08] VITALS: PULSE 64
[2017-08-08] MEDS: ACETAMINOPHEN/HYDROcodone 325 MG/7.5 MG TAB PO PRN (00:34)
[2017-08-08 01:51] VITALS: BP 95/54; PULSE 52; RESP 17; TEMP 98.5; O2SAT 96
[2017-08-08 04:00] VITALS: PULSE 58
[2017-08-08 04:07] VITALS: BP 111/68; PULSE 60; RESP 17; TEMP 97.5; O2SAT 98
--- NOTE | 2017-08-08 08:57 | HHI.DS ---
Discharge Summary Admission Date Aug 07, 2017 at 09:14 Admitting Diagnosis Chest Pain Brief History This is a 57-year-old female with history of hypertension and hyperlipidemia that presents to ED complaining of chest pain and shortness of breath. Patient states she was awoken at 5:00 this morning with chest pain and shortness of breath. There is in the center of her chest. It then radiated into the back and then down both arms. It lasted 2 or 3 minutes. Recently cold symptoms with a nonproductive cough. Subjective fevers. There have been sick contacts. CBC/BMP: 08/07/17 0610 08/07/17 0610 Significant Findings Laboratory Tests Test 08/07/17 06:10 Hemoglobin 11.0 GM/DL (11.6-15.3) Hematocrit 32.9 % (35.0-46.0) Lymphocytes (%) (Auto) 44.5 % (9.0-44.0) Monocytes (%) (Auto) 13.1 % (0.0-8.0) Eosinophils (%) (Auto) 7.8 % (0.0-4.0) Neutrophils # (Auto) 1.4 TH/MM3 (1.8-7.7) D-Dimer Quantitative (PE/DVT) 0.57 MG/L FEU (0.00-0.50) Blood Urea Nitrogen 20 MG/DL (7-18) Total Protein 8.4 GM/DL (6.4-8.2) Estimat Glomerular Filtration Rate 78 ML/MIN (>89) Troponin I LESS THAN 0.02 NG/ML Lipase 63 U/L (73-393) Imaging Last [address] Angiography 08/07/17 0709 Signed Impressions: Service Date/Time: Monday, August 07, 2017 08:10 - CONCLUSION: 1. No evidence of pulmonary embolism. 2. Marked cardiomegaly and tiny pericardial effusion. 3. Minimally prominent mediastinal lymph nodes which are nonspecific. 4. Bullous change within the left apex. 5. Minimal bibasilar fibrotic scarring. 6. Mild degenerative changes and scoliosis of the thoracic spine. Joaquin Puente MD Chest X-Ray 08/07/17 0614 Signed Impressions: Service Date/Time: Monday, August 07, 2017 06:19 - CONCLUSION: Enlargement of the cardiac silhouette. No acute pulmonary abnormality is identified. Mukund Toscano MD Myocardial Perfusion Scan Nuc Med 08/07/17 0000 Signed Impressions: Service Date/Time: Monday, August 07, 2017 13:58 - CONCLUSION: Mild severity fixed apical perfusion abnormality. Borderline ejection fraction RISK CATEGORY: Intermediate (1-3%% Annual Mortality Rate) Mukund Og MD PE at Discharge GENERAL: Alert WN, WD, NAD, obese, pleasant female HEAD: NC, AT EYES: Sclera clear, conjunctiva without injection ENT: Mucous membranes pink and moist NECK: Supple, no masses, trachea midline CV: RRR, without murmur, rub, gallop, no JVD, S1-S2 no S3-S4. RESP: Clear lungs throughout bilateral, no crackles, wheeze, rhonchi, symmetrical chest rise, nonlabored, able to speak in full sentences MS: Normal tone 4 extremities, full range of motion PSYCH: A+O 3, pleasant affect, appropriate speech, mood, insight and judgment SKIN: Normal turgor, normal texture Hospital Course Chest pain center. Ruled out with 3 sets of EKGs and cardiac enzymes. Unremarkable chemical stress test. Echocardiogram completed due to questionable cardiomegaly noted on chest x-ray. Dr. Soriano reviewed echocardiogram which suggested mild AI and MR with normal sized ventricles. Discharged home with follow up with PCP. Encouraged repeat echocardiogram one year. Verbalized understanding and agreeable to discharge this morning. Pt Condition on Discharge: Good Discharge Disposition: Discharge Home Discharge Instructions DIET: Follow Instructions for: Heart Healthy Diet Activities you can perform: Regular-No Restrictions Rae Escamilla Aug 08, 2017 08:57
[2017-08-08 10:43] VITALS: BP 116/68; PULSE 57; RESP 18; TEMP 97.9; O2SAT 97
[2017-08-08] MEDS: GABAPENTIN 100 MG CAP PO SCH (11:07)
[2017-08-08] MEDS: HYDROCHLOROTHIAZIDE 12.5 MG CAP PO SCH (11:07)
[2017-08-08] MEDS: POTASSIUM CHLORIDE 20 MEQ CONTROLLED RELEASE TAB PO SCH (11:07)
[2017-08-08] MEDS: PANTOPRAZOLE SOD 40 MG DELAYED RELEASE TAB PO SCH (11:07)
--- NOTE | 2017-08-09 16:33 | TR ---
Date Performed: 08/07/2017 Time Performed: 14:23:27 DOCTOR: Doug Soriano DRUG LIST: CLINICAL HISTORY: ANGINA REASON FOR TEST: Angina REASON FOR ENDING: OBSERVATION: CONCLUSION: Lexiscan stress test was performed under standard four minute protocol. Radionuclid e was injected one minute prior to ending the test. No electrocardiographic abormalities were present to suggest ischemia. Nuclear imaging and interpretation are pending. COMMENTS:
== END 2017-08-08 14:01 | disposition home or self-care (01) ==
LOC: NEPE 05:56 → NEDA 09:14 → NEPFCDU 15:28
PROVIDERS: ADMIT Internal Medicine Cardiovascular Disease; ATTEND Internal Medicine Cardiovascular Disease
DX: R07.2 Precordial pain (principal); I11.9 Hypertensive heart disease without heart failure; I49.1 Atrial premature depolarization; R94.31 Abnormal electrocardiogram [ECG] [EKG]; E78.5 Hyperlipidemia, unspecified; E78.00 Pure hypercholesterolemia, unspecified; G25.81 Restless legs syndrome; M19.011 Primary osteoarthritis, right shoulder; M41.9 Scoliosis, unspecified; Z79.82 Long term (current) use of aspirin
CPT/HCPCS: 71045; 71275; 78452; 80053; 82550; 83690; 83735; 83880; 84484; 85025; 85379; 85610; 85730; 87804; 93005; 93017; 93306; 99285; A9502; G0378; J2785; Q9967

== ENCOUNTER 2017-09-14 15:06 | Emergency (ER) | payer BC ==
[~2017-09-14] VITALS: Ht 157.5 cm; Wt 100.0 kg
[~2017-09-14 15:06] MED LIST: CYAN1TAB24; D 50CAP2 PO; GABA100C4 PO; HYDR12.57 PO; MELO15TA20 PO; POTA-163 PO; TIZA4TAB PO; TYLE325T PO
[2017-09-14 15:10] VITALS: BP 126/58; PULSE 80; RESP 18; TEMP 98.5; O2SAT 98
[2017-09-14] MEDS ORDERED: AUGM875T3 PO (17:14)
--- NOTE | 2017-09-14 17:14 | PD ---
HPI Chief Complaint: ENT Complaint Time Seen by Provider: 17:05 Travel History International Travel<30 days: No Contact w/Intl Traveler<30days: No Traveled to known affect area: No History of Present Illness HPI 57-year-old female here for evaluation of sore throat 2 days. The patient reports that her grandchildren at home have been sick with upper respiratory symptoms and coughed in her face. Pain is moderate, worse with swallowing. She is able to swallow and tolerate her secretions. She is unsure if she has had a fever because she has been taking Tylenol. No cough. No ear pain. PFSH Past Medical History High Cholesterol: Yes Hypertension: Yes Past Surgical History Other Surgery: Yes (hernia surgery with mesh 11/2016) Social History Alcohol Use: No Tobacco Use: No Substance Use: No Allergies-Medications (Allergen,Severity, Reaction): Coded Allergies: ibuprofen (Verified Allergy, Unknown, BLEEDING, 08/07/17) Reported Meds & Prescriptions Reported Meds & Active Scripts Active Reported Tizanidine (Tizanidine HCl) 4 Mg Tab 4 Mg PO Q6HR D3 Maximum Strength (Cholecalciferol) 5,000 Unit Cap 1,000 Units PO DAILY Tylenol (Acetaminophen) 325 Mg Tab 500 Mg PO Q4H PRN Hydrochlorothiazide 12.5 Mg Cap 12.5 Mg PO DAILY Meloxicam 15 Mg Tab 15 Mg PO DAILY Potassium Chloride ER (Potassium Chloride) 20 Meq Tab 20 Meq PO BID B12 (Cyanocobalamin) 1,000 Mcg Tab 500 Gabapentin 100 Mg Cap 100 Mg PO TID Review of Systems Except as stated in HPI: all other systems reviewed are Neg Physical Exam Narrative GENERAL: Well-developed, well-nourished, comfortable, no apparent distress. SKIN: Focused skin assessment warm/dry. No rash. HEAD: Atraumatic. Normocephalic. EYES: Pupils equal and round. No scleral icterus. No injection or drainage. ENT: No nasal bleeding or discharge. Mucous membranes pink and moist. Bilateral tympanic membranes and external auditory canals are normal. Pharynx with mild erythema without exudates. Uvula midline. Normal phonation. No drooling or stridor. No trismus. NECK: Trachea midline. No JVD. No submandibular or neck induration or swelling. CARDIOVASCULAR: Regular rate and rhythm. RESPIRATORY: No accessory muscle use. Clear to auscultation. Breath sounds equal bilaterally. GASTROINTESTINAL: Abdomen soft, non-tender, nondistended. MUSCULOSKELETAL: No obvious deformities. No clubbing. No cyanosis. No edema. NEUROLOGICAL: Awake and alert. No obvious cranial nerve deficits. Motor grossly within normal limits. Normal speech. PSYCHIATRIC: Appropriate mood and affect; insight and judgment normal. Data Data Last Documented VS Vital Signs Date Time Temp Pulse Resp B/P (MAP) Pulse Ox O2 Delivery O2 Flow Rate FiO2 09/14/17 15:10 98.5 80 18 126/58 (80) 98 Orders Orders Group A Rapid Strep Screen (09/14/17 15:12) Strep Culture (Group A) (09/14/17 15:13) Amoxicil-Clavulanate (Augmentin) (09/14/17 17:15) [facility] Medical Decision Making Medical Screen Exam Complete: Yes Emergency Medical Condition: Yes Differential Diagnosis Strep pharyngitis, viral illness, influenza Narrative Course Vital signs reviewed and are within normal limits. The patient is afebrile. Group A strep is negative. The patient has moderate erythema to her pharynx. Pharynx is otherwise within normal limits. Normal phonation. No drooling or stridor. Plan is to start her on Augmentin and have her follow-up with her primary care physician this week. She was advised on when to return to the emergency department. She verbalizes understanding and agreement with plan. Diagnosis Primary Impression: Pharyngitis Qualified Codes: J02.9 - Acute pharyngitis, unspecified Referrals: Primary Care Physician 3 days Additional Instructions: Follow-up with your primary care physician this week. Stay hydrated with plenty of fluids. Return to the emergency department for worsening symptoms or any other concerns. Scripts Amoxicillin-Clavulanate (Augmentin) 875-125 Mg Tab 1 TAB PO BID for Infection for 7 Days, #14 TAB 0 Refills Prov: Oscar Gutierrez MD 09/14/17 Disposition: 01 DISCHARGE HOME Condition: Stable Oscar Gutierrez MD Sep 14, 2017 17:14
[2017-09-14] MEDS ORDERED: AMOXICILLIN/CLAVULANATE K 875 MG TAB PO ONE (17:15)
== END 2017-09-14 17:32 | disposition home or self-care (01) ==
LOC: NEPD 15:06
DX: J02.9 Acute pharyngitis, unspecified (principal); E78.00 Pure hypercholesterolemia, unspecified; I10 Essential (primary) hypertension
CPT/HCPCS: 87081; 87880; 99283

== ENCOUNTER 2017-10-22 21:01 | Emergency (ER) | payer BC ==
[~2017-10-22] VITALS: Ht 157.5 cm; Wt 105.0 kg
[~2017-10-22 21:01] MED LIST changes: +AUGM875T3 PO
[2017-10-22 21:41] VITALS: BP 136/57; PULSE 82; RESP 16; TEMP 100.6; O2SAT 96
[2017-10-22] MEDS ORDERED: ONDANSETRON ODT 4 MG TAB PO ONE (22:45)
[2017-10-22] MEDS ORDERED: ACETAMINOPHEN 500 MG CPLT PO ONE (22:45)
--- NOTE | 2017-10-22 22:57 | PD ---
HPI Chief Complaint: Cold / Flu Symptoms Time Seen by Provider: 22:23 Travel History International Travel<30 days: No Contact w/Intl Traveler<30days: No Traveled to known affect area: No History of Present Illness HPI The patient was seen and examined in the presence of the nurse. This patient complains of body aches and cough and runny nose and congestion and fever. Duration 2 days. Symptom severity is moderate. No alleviating factors. No exacerbating factors. PFSH Past Medical History High Cholesterol: Yes Diminished Hearing: No Hypertension: Yes Tetanus Vaccination: < 5 Years Influenza Vaccination: No ?: Not Past Surgical History Hysterectomy: Yes Other Surgery: Yes (hernia surgery with mesh 11/2016) Social History Alcohol Use: No Tobacco Use: No Substance Use: No Allergies-Medications (Allergen,Severity, Reaction): Coded Allergies: ibuprofen (Verified Allergy, Unknown, BLEEDING, 10/22/17) Reported Meds & Prescriptions Reported Meds & Active Scripts Active Augmentin (Amoxicillin-Clavulanate) 875-125 Mg Tab 1 Tab PO BID 7 Days Reported Tizanidine (Tizanidine HCl) 4 Mg Tab 4 Mg PO Q6HR D3 Maximum Strength (Cholecalciferol) 5,000 Unit Cap 1,000 Units PO DAILY Tylenol (Acetaminophen) 325 Mg Tab 500 Mg PO Q4H PRN Hydrochlorothiazide 12.5 Mg Cap 12.5 Mg PO DAILY Meloxicam 15 Mg Tab 15 Mg PO DAILY Potassium Chloride ER (Potassium Chloride) 20 Meq Tab 20 Meq PO BID B12 (Cyanocobalamin) 1,000 Mcg Tab 500 Gabapentin 100 Mg Cap 100 Mg PO TID Review of Systems General / Constitutional: Positive: Fever, Chills Eyes: No: Visual changes HENT: Positive: Rhinorrhea, Congestion, No: Headaches Cardiovascular: No: Chest Pain or Discomfort Respiratory: Positive: Cough, No: Shortness of Breath Gastrointestinal: No: Abdominal Pain Genitourinary: No: Dysuria Musculoskeletal: Positive: Myalgias, No: Pain Skin: No Rash Neurologic: No: Weakness Psychiatric: No: Depression Endocrine: No: Polydipsia Hematologic/Lymphatic: No: Easy Bruising Physical Exam Narrative GENERAL: Well-nourished, well-developed patient with flulike symptoms SKIN: Focused skin assessment reveals no rash and nodules. Skin is Warm and dry. HEAD: Atraumatic. Normocephalic. EYES: Pupils equal and round. No scleral icterus. No injection or drainage. ENT: No nasal bleeding or discharge. Mucous membranes pink and moist. Throat clear NECK: Trachea midline. No JVD. No meningeal signs CARDIOVASCULAR: Regular rate and rhythm. No murmur appreciated. RESPIRATORY: No accessory muscle use. Clear to auscultation. Breath sounds equal bilaterally. GASTROINTESTINAL: Abdomen soft, non-tender, nondistended. Hepatic and splenic margins not palpable. MUSCULOSKELETAL: No obvious deformities. No clubbing. No cyanosis. No edema. NEUROLOGICAL: Awake and alert. No obvious cranial nerve deficits. Motor grossly within normal limits. Normal speech. PSYCHIATRIC: Appropriate mood and affect; insight and judgment normal. Data Data Last Documented VS Vital Signs Date Time Temp Pulse Resp B/P (MAP) Pulse Ox O2 Delivery O2 Flow Rate FiO2 10/22/17 21:41 100.6 82 16 136/57 (83) 96 Orders Orders Ondansetron Odt (Zofran Odt) (10/22/17 22:45) Acetaminophen (Tylenol) (10/22/17 22:45) Influenzae A/B Antigen (10/22/17 22:42) Chest, Single Ap (10/22/17 ) MDM Medical Decision Making Medical Screen Exam Complete: Yes Emergency Medical Condition: Yes Medical Record Reviewed: Yes Differential Diagnosis Flu syndrome, pneumonia, URI Narrative Course I have reviewed the patient's electronic medical record. I gave her dose of Zofran followed by some Tylenol Reviewed her chest x-ray which shows cardiomegaly but no infiltrate Influenza swab is negative Supportive care discussed She has acute viral syndrome Diagnosis Primary Impression: Acute viral syndrome Additional Instructions: The patient was advised to follow up with their physician and return if they worsen. Med/Other Pt SpecificInfo: Other Disposition: DISCHARGE HOME Condition: Stable Abdi Leon MD Oct 22, 2017 22:56
--- NOTE | 2017-10-22 23:54 | RADRPT ---
EXAM DATE/TIME: 10/22/2017 23:36 [facility] COMPARISON: CHEST SINGLE AP, August 07, 2017, 6:19. INDICATIONS : Short of breath. MEDICAL HISTORY : None. SURGICAL HISTORY : None. ENCOUNTER: Initial ACUITY: 1 day PAIN SCORE: 0/10 LOCATION: Bilateral chest FINDINGS: A single view of the chest demonstrates the lungs to be symmetrically aerated without evidence of mas s, infiltrate or effusion. The cardiomediastinal contours are prominent. Osseous structures are inta ct. CONCLUSION: 1. Cardiomegaly without focal infiltrate. Stephen Webb MD on October 22, 2017 at 23:49 Board Certified Radiologist. This report was verified electronically.
[2017-10-24] MEDS ORDERED: MAGICPED SWISH-SWAL (10:43)
[2017-10-24] MEDS ORDERED: BENZ100 PO (10:43)
[2017-10-24] MEDS ORDERED: AUGM875T3 PO (10:43)
== END 2017-10-23 00:38 | disposition home or self-care (01) ==
LOC: NEPD 21:01
DX: B34.9 Viral infection, unspecified (principal)
CPT/HCPCS: 71045; 87804; 99284

== ENCOUNTER 2017-10-24 08:02 | Emergency (ER) | payer BC ==
[~2017-10-24 08:02] MED LIST changes: -AUGM875T3 PO
[2017-10-24 08:15] VITALS: BP 118/61; PULSE 83; RESP 20; TEMP 100; O2SAT 96
--- NOTE | 2017-10-24 09:54 | PD ---
HPI Chief Complaint: Cold / Flu Symptoms Time Seen by Provider: 09:22 Travel History International Travel<30 days: No Contact w/Intl Traveler<30days: No Traveled to known affect area: No History of Present Illness HPI 57-year-old female presents to the emergency department with complaint of a sore throat since yesterday. She was seen here 2 days ago with complaint of cough, nasal congestion that started on Saturday. She was tested for flu which was negative and chest x-ray which was unremarkable. She reports fever of 100.62 days ago when she was here. She reports nausea without vomiting. Denies lump in throat, difficulty swallowing, unusual drooling. Reports painful swallowing. Denies chest pain, shortness breath, abdominal pain. Has been drinking honey and lemon tea for symptom management. Rates sore throat 10/ 10. Worse with swallowing. Some relief with the honey and lemon. No one else with similar symptoms, though she says she lives with her grandchildren and her house to go to school. Allergies to ibuprofen. Primary care provider is Dr. Hand. History of hypertension and takes medications. Has no other medical complaints. No other modifying factors or associated signs and symptoms. PFSH Past Medical History High Cholesterol: Yes Diminished Hearing: No Hypertension: Yes ?: Not Past Surgical History Hysterectomy: Yes Other Surgery: Yes (hernia surgery with mesh 11/2016) Social History Alcohol Use: No Tobacco Use: No Substance Use: No Allergies-Medications (Allergen,Severity, Reaction): Coded Allergies: ibuprofen (Verified Allergy, Unknown, BLEEDING, 10/22/17) Reported Meds & Prescriptions Reported Meds & Active Scripts Active Augmentin (Amoxicillin-Clavulanate) 875-125 Mg Tab 1 Tab PO BID 7 Days Reported Tizanidine (Tizanidine HCl) 4 Mg Tab 4 Mg PO Q6HR D3 Maximum Strength (Cholecalciferol) 5,000 Unit Cap 1,000 Units PO DAILY Tylenol (Acetaminophen) 325 Mg Tab 500 Mg PO Q4H PRN Hydrochlorothiazide 12.5 Mg Cap 12.5 Mg PO DAILY Meloxicam 15 Mg Tab 15 Mg PO DAILY Potassium Chloride ER (Potassium Chloride) 20 Meq Tab 20 Meq PO BID B12 (Cyanocobalamin) 1,000 Mcg Tab 500 Gabapentin 100 Mg Cap 100 Mg PO TID Review of Systems Except as stated in HPI: all other systems reviewed are Neg Physical Exam Narrative GENERAL: Well-nourished, well-developed black female patient, in no acute distress; low-grade fever 100.0; nontoxic-appearing SKIN: Warm and dry. No rash. HEAD: Atraumatic. Normocephalic. EYES: Pupils equal and round at 3 mm with brisk reaction. No scleral icterus. No injection or drainage. PERRLA. ENT: Mucosa pink and dry. Oropharynx without erythema, exudate, or edema. No uvular edema. No uvular, palatal, or tonsillar deviation. Airway patent. Voice is hoarse. EARS: Bilateral pinnae and external canals appear within normal limits. Bilateral tympanic membranes without erythema, dullness or perforation.. NECK: Trachea midline. No anterior cervical lymphadenopathy and tenderness. CARDIOVASCULAR: Regular rate and rhythm. No murmur appreciated. RESPIRATORY: No accessory muscle use. Clear to auscultation. Breath sounds equal bilaterally. GASTROINTESTINAL: Abdomen soft, non-tender, nondistended. Hepatic and splenic margins not palpable. Bowel sounds are active 4 quadrants. MUSCULOSKELETAL: No obvious deformities. No clubbing. No cyanosis. No edema. NEUROLOGICAL: Awake and alert. Oriented 3. No obvious cranial nerve deficits. Motor grossly within normal limits. Normal speech. Moves all extremities. PSYCHIATRIC: Appropriate mood and affect; insight and judgment normal. Data Data Last Documented VS Vital Signs Date Time Temp Pulse Resp B/P (MAP) Pulse Ox O2 Delivery O2 Flow Rate FiO2 10/24/17 08:15 100.0 83 20 118/61 (80) 96 Orders Orders Group A Rapid Strep Screen (10/24/17 09:24) Ondansetron Odt (Zofran Odt) (10/24/17 10:00) Acetaminophen (Tylenol) (10/24/17 10:00) Strep Culture (Group A) (10/24/17 10:00) MDM Medical Decision Making Medical Screen Exam Complete: Yes Emergency Medical Condition: Yes Medical Record Reviewed: Yes Differential Diagnosis Strep pharyngitis, viral pharyngitis, upper respiratory infection Narrative Course 57-year-old female complaining of sore throat that started yesterday. She was seen here 2 days ago complaining of nasal congestion and cough and chest x-ray and flu were both negative. She has low-grade fever of 100.0 here in the ER. She is nontoxic appearing. She reports T-max of 100.62 nights ago. Reports nausea without vomiting. Zofran, Tylenol ordered. Rapid strep ordered. 1043: Rapid strep negative. I will treat the patient with antibiotics for upper respiratory infection secondary to fevers and reported symptoms. Augmentin, Magic mouthwash, Tessalon Perles prescribed for home. Instructed patient to follow up with primary care provider. Patient verbalizes understanding and agreement with treatment plan. Patient is medically cleared and stable for discharge. Discussed reasons to return to the emergency department. Patient agrees with treatment plan. The patients vital signs are stable and the patient is stable for outpatient follow-up and treatment. Patient discharged home, stable and in no acute distress. Diagnosis Primary Impression: Upper respiratory infection Qualified Codes: J06.9 - Acute upper respiratory infection, unspecified Referrals: [facility] Primary Care Physician Patient Instructions: General Instructions, Upper Respiratory Infection (ED) Additional Instructions: Ibuprofen or Tylenol as directed and as needed to reduce fever; may alternate ibuprofen and Tylenol as needed every 3 hours to minimize fever [id number] cold/flu medications as directed and as needed for symptom management Get plenty of sleep/rest Drink plenty of fluids to prevent dehydration; such as Gatorade, Powerade, Pedialyte Zalma diet to encourage nutrition such as crackers, fruit, applesauce, toast, soup etc. Use an air humidifier/turn off ceiling fans Follow-up with your primary care provider within 1 day Return immediately to the emergency department with worsening of symptoms Med/Other Pt SpecificInfo: Prescription(s) given Scripts Benzonatate (Tessalon Perles) 100 Mg Cap 100 MG PO TID Y for COUGH for 3 Days, CAP 0 Refills Prov: Deb CappsP 10/24/17 [id number]-Dpq-Alum-Simeth Liq (Magic Mouthwash Pediatric/Adult Liq) 60 Ml Susp 5 ML SWISH-SWAL ACHS Y for SORE THROAT, #60 ML 0 Refills Each 5mL contains: Diphenydramine 4.5mg, Viscous Lidocaine 2% 10mg, Maalox Advanced Regular Strength 2.7ml Prov: Deb Capps BURR FILER 10/24/17 Amoxicillin-Clavulanate (Augmentin) 875-125 Mg Tab 1 TAB PO BID for Infection for 7 Days, #14 TAB 0 Refills Prov: Deb Capps 10/24/17 Disposition: 01 DISCHARGE HOME Condition: Stable Deb Capps Oct 24, 2017 09:54
[2017-10-24] MEDS ORDERED: ONDANSETRON ODT 4 MG TAB PO ONE (10:00)
[2017-10-24] MEDS ORDERED: ACETAMINOPHEN 500 MG CPLT PO ONE (10:00)
[2017-10-24] MEDS ORDERED: AUGM875T3 PO (10:43)
[2017-10-24] MEDS ORDERED: BENZ100 PO (10:43)
[2017-10-24] MEDS ORDERED: MAGICPED SWISH-SWAL (10:43)
== END 2017-10-24 10:53 | disposition home or self-care (01) ==
LOC: NEPK 08:02
DX: J06.9 Acute upper respiratory infection, unspecified (principal); E78.00 Pure hypercholesterolemia, unspecified; I10 Essential (primary) hypertension
CPT/HCPCS: 87081; 87880; 99283